=== PATIENT | male | born 1960 | race Caucasian/White ===

== ENCOUNTER 2019-12-10 18:23 | Inpatient (IN) | payer MEDICAID ==
[~2019-12-10] VITALS: Ht 167.6 cm; Wt 79.8 kg
--- NOTE | 2019-12-10 18:38 | NUR ---
REGINALDO FROM [facility] W C/O SOB AND FEVER. TO ER BED 8, PROVIDED MASK TO PATIENT, HOOKED TO BRANCH ACCOUNT MANAGER AND POX, PATIENT NOTED TACHYCARDIC AT 152BPM, AFEBRILE AT 98.4F. CHANGED TO HOSP GOWN, NOTED WITH R CHEST PORT-A-CATH, RADHA AV FISTULA WITH BRUIT AND THRILL. WARM BLANKET PROVIDED, PATIENT LAST DIALYSIS LAST SUNDAY. DR CASTELLON AT BEDSIDE FOR EVAL.
--- NOTE | 2019-12-10 18:53 | NUR ---
GOVERNMENT SERVICE EXECUTIVE AT BEDSIDE FOR XRAY.
[2019-12-10 19:00] LABS: BASOPHILS % (AUTO) 0.5 % (0.0-2.0); EOSINOPHILS % (AUTO) 0.8 % (0.0-6.0); HEMATOCRIT 29 % (39-51); HEMOGLOBIN 9.7 g/dL (13.5-17.5); LYMPHOCYTES # (AUTO) 0.7 /CMM (0.8-4.8); LYMPHOCYTES % (AUTO) 8.3 % (20.0-44.0); MEAN CORPUSCULAR HGB CONC 33 g/dl (31.0-36.0); MEAN CORPUSCULAR VOLUME 98 fL (80-96); MONOCYTES # (AUTO) 0.7 /CMM (0.1-1.30); MONOCYTES % (AUTO) 7.6 % (2.0-12.0); NEUTROPHILS # (AUTO) 7.1 /CMM (1.8-8.9); NEUTROPHILS % (AUTO) 82.8 % (43.0-81.0); PLATELET COUNT (AUTO) 198 /CMM (150-450); RED BLOOD CELL COUNT(AUTO) 2.99 MIL/uL (4.5-6.0); WHITE BLOOD COUNT (AUTO) 8.6 K/uL (4.3-11.0)
[2019-12-10] MEDS ORDERED: CHOL100040 PO (19:05)
[2019-12-10] MEDS ORDERED: POLY17PO4 PO (19:05)
[2019-12-10] MEDS ORDERED: CARV3.122 PO (19:05)
[2019-12-10] MEDS ORDERED: FOLI0.8T23 PO (19:05)
[2019-12-10] MEDS ORDERED: ASPI-1152 PO (19:05)
[2019-12-10] MEDS ORDERED: ATOR40TA PO (19:05)
[2019-12-10] MEDS ORDERED: BUME2TAB7 PO (19:05)
[2019-12-10] MEDS ORDERED: GABA-534 PO (19:05)
[2019-12-10] MEDS ORDERED: SENN-261 PO (19:05)
[2019-12-10] MEDS ORDERED: NIFE-57 PO (19:05)
[2019-12-10] MEDS ORDERED: SEVE800T8 PO (19:05)
[2019-12-10] MEDS ORDERED: BISA-79 PO (19:05)
--- NOTE | 2019-12-10 19:26 | NUR ---
REC'D REPORT FROM PEPE BUCK FOR ALANNAH
--- NOTE | 2019-12-10 19:26 | NUR ---
REPORT GIVEN TO RJ LEIVA RN FOR ALANNAH
[2019-12-10 19:30] LABS: ALBUMIN 3.3 g/dL (3.4-5.0); BILIRUBIN,TOTAL 0.4 mg/dL (0.2-1.0); CALCIUM, SERUM 7.6 mg/dL (8.5-10.1); TOTAL PROTEIN, SERUM 7.6 g/dL (6.4-8.2)
[2019-12-10 19:32] LABS: CREATININE 10.9 mg/dL (0.6-1.3)
--- NOTE | 2019-12-10 20:02 | NUR ---
RT AT BEDSIDE FOR ABG
[2019-12-10 20:04] LABS: C-REACTIVE PROTEIN 9.1 mg/dL (0.0-0.9)
[2019-12-10 20:12] LABS: ABG BASE EXCESS -8.8 mmol/L; ABG OXYGEN SATURATION 85.7 % (92.0-98.5); ABG PCO2 33.9 mmHg (35.0-45.0); ABG PH 7.307 (7.350-7.450); ABG PO2 55.4 mmHg (75.0-100.0); AaDO2 53.7 mmHg; COHb 0.3 % (0.5-1.5); MetHb 0.3 % (0.0-1.5); O2Hb 85.2 % (94.0-97.0); SITE, ABG Right Radial; VENT MODE, BG RA
[2019-12-10 20:33] LABS: D-DIMER 0.32 mg/L(FEU (0.17-0.50)
[2019-12-10] MEDS ORDERED: DILTIAZEM HCL 50 MG IV IV PRN (22:00)
[2019-12-10] MEDS ORDERED: BISACODYL (5 MG) 5 MG TABLET.DR PO PRN (22:00)
--- NOTE | 2019-12-10 22:01 | NUR ---
Patient is resting comfortably in bed with eyes closed. Easily aroused. VSS
[2019-12-10] MEDS ORDERED: ONDANSETRON HCL/PF 4 MG/2 ML VIAL IVP PRN (22:30)
[2019-12-10] MEDS ORDERED: MORPHINE SULFATE INJ 2 MG/ML DISP.SYRIN IV PRN (22:30)
[2019-12-10] MEDS ORDERED: HYDROCODONE/APAP 5/325MG 1 EACH TABLET PO PRN (22:30)
[2019-12-10] MEDS ORDERED: MAGNESIUM HYDROXIDE 30 ML UDC PO PRN (22:30)
[2019-12-10] MEDS ORDERED: ACETAMINOPHEN 325 MG TABLET PO PRN (22:30)
[2019-12-10] MEDS ORDERED: Z GUARD REMEDY 2 OZ OINT TP PRN (22:30)
[2019-12-10] MEDS ORDERED: MAG HYDROX/AL HYDROX/SIMETH 30 ML UDC PO PRN (22:30)
--- NOTE | 2019-12-11 00:27 | NUR ---
REPORT GIVEN TO PEPE GOOD FOR ALANNAH
--- NOTE | 2019-12-11 00:28 | NUR ---
RECEIVED REPORT FROM ER NURSE DE LA ROSA FOR ALANNAH.
--- NOTE | 2019-12-11 00:46 | NUR ---
PT TRANSFERRED PER ACLS PROTOCOL
--- NOTE | 2019-12-11 00:47 | NUR ---
RN ADMITTING NOTE RECEIVED PATIENT FROM ER VIA [facility]; ADMITTING DIAGNOSIS OF SHORTNESS OF BREATH AND FEVER. PATIENT AWAKE, ALERT AND ORIENTED X4. GRENADIAN SPEAKING BUT ABLE TO UNDERSTAND SOME GAMBIAN. DENIES PAIN. IN NO S/SX OF ACUTE DISTRESS AT THIS TIME. NO SOB NOTED. PATIENT'S BREATHING IS EVEN AND UNLABORED. PATIENT IS ON 2 L OF OXYGEN VIA NC; TOLERATING WELL.SATURATING 100% AT THE MOMENT. PATIENT ON TELE MONITOR READING SR AT 70'S. NOTED IV SITE ON RAC; GAUGE18,PATENT AND FLUSHING WELL, SALINE LOCKED. NO S/S OF INFECTION OR INFILTRATION. NOTED AV FISTULA ON THE RADHA. SITE CLEAN , DRY, INTACT. BRUIT AND THRILL NOTED. PATIENT KEPT CLEAN , DRY AND COMFORTABLE.SAFETY MEASURES IMPLEMENTED PER PROTOCOL. PATIENT BED ALARM IS ON. HEAD OF BED ELEVATED. BED IS LOCKED, IN LOWEST POSITION AND SIDE RAILS UPX2. CALL LIGHT WITHIN REACH OF THE PATIENT. ISOLATION PRECAUTIONS IN PLACE. WILL CONTINUE TO MONITOR AND REASSESS FOR ANY CHANGE IN CONDITION. WILL ATTEND TO ALL MD ADMITTING ORDERS.
[2019-12-11 01:19] VITALS: BP 132/69
[2019-12-11] MEDS: SENNOSIDES 8.6 MG TABLET PO SCH ×2 (01:42→21:03)
[2019-12-11] MEDS: GABAPENTIN 300 MG CAPSULE PO SCH ×2 (01:42→21:03)
[2019-12-11] MEDS: ASPIRIN EC 81 MG TABLET.DR PO SCH ×2 (01:42→08:08)
[2019-12-11] MEDS: CARVEDILOL 6.25 MG TABLET PO SCH ×3 (01:43→16:15)
[2019-12-11] MEDS: FUROSEMIDE 40 MG/4 ML VIAL IV SCH ×3 (01:43→21:03)
[2019-12-11] MEDS ORDERED: HEPARIN INFUSION/D5W 500 ML IV ONE (01:56)
[2019-12-11] MEDS ORDERED: HEPARIN SODIUM, PORCINE 5000 UNITS/1 ML VIAL IVP SCH (02:00)
[2019-12-11] MEDS: HEPARIN INFUSION/D5W 500 ML IV PRN (03:08)
[2019-12-11 04:00] VITALS: BP 141/77
--- NOTE | 2019-12-11 06:20 | NUR ---
RN NOTES PATIENT RESTED WELL THROUGH OUT THE NIGHT. CONTINUES ON HEPARIN DRIP NO S/S OF BLEEDING NO BRUISING NOTED. NO S/S OF ACUTE DISTRESS NOTED. TELE MONITOR READING SR IN 70TO 80'S. RAC IV INTACT, RADHA AV FISTULA INTACT BRUT AND THRILL NOTED. NO S/S OF FEVER NOTED. ALL NEEDS ARE ATTENDED. SAFETY MEASURES IN PLACE, CALL LIGHT WITHIN REACH. WILL ENDORSE TO AM NURSE FOR ALANNAH.
--- NOTE | 2019-12-11 07:20 | NUR ---
RN OPENING NOTE Received patient asleep in bed appears calm and relaxed no signs of distress. Patient is on RA tolerating well O2sat 99%. Patient is ghanaian speaking knows a little bit of slovak. Tele reading SR. Has a urinal at bedside. Skin is intact patient able to ambulate. Patient has 18# RAC running Heparin and AV fistula in RADHA. Safety measures reinforced. Bed locked and on lowest position. Call light within reach. Will cont to monitor.
[2019-12-11 07:26] LABS: BASOPHILS # (AUTO) 0.1 /CMM (0.0-0.2); BASOPHILS % (AUTO) 0.7 % (0.0-2.0); HEMATOCRIT 28 % (39-51); HEMOGLOBIN 9.2 g/dL (13.5-17.5); LYMPHOCYTES # (AUTO) 0.6 /CMM (0.8-4.8); MEAN CORPUSCULAR HGB CONC 33 g/dl (31.0-36.0); MEAN CORPUSCULAR VOLUME 97 fL (80-96); MONOCYTES # (AUTO) 0.5 /CMM (0.1-1.30); MONOCYTES % (AUTO) 7.7 % (2.0-12.0); NEUTROPHILS # (AUTO) 5.9 /CMM (1.8-8.9); NEUTROPHILS % (AUTO) 81.6 % (43.0-81.0); PLATELET COUNT (AUTO) 179 /CMM (150-450); RED BLOOD CELL COUNT(AUTO) 2.85 MIL/uL (4.5-6.0); WHITE BLOOD COUNT (AUTO) 7.2 K/uL (4.3-11.0)
[2019-12-11 07:40] LABS: CALCIUM, SERUM 7.5 mg/dL (8.5-10.1); PHOSPHORUS 6.6 mg/dL (2.5-4.9); POTASSIUM 4.5 mmol/L (3.5-5.1)
[2019-12-11 07:46] LABS: CREATININE 11.2 mg/dL (0.6-1.3)
[2019-12-11 07:48] LABS: MAGNESIUM 4.3 mg/dL (1.8-2.4)
--- NOTE | 2019-12-11 07:50 | NUR ---
RN NOTE CRITICAL LAB VALUE CALLED BY DELON MAGNESIUM IS 4.3. INFORMED TG TRACER BULLET CHARGING MACHINE OPERATOR WITH NO NEW ORDERS. PATIENT IS HAVING DIALYSIS AT THE MOMENT.
[2019-12-11 08:00] VITALS: BP_SYST 136; BP_SYST 137; BP_DIAS 67; BP_DIAS 69
[2019-12-11] MEDS: SEVELAMER CARBONATE 800 MG TABLET PO SCH ×3 (08:07→18:06)
[2019-12-11] MEDS: ATORVASTATIN 40 MG TABLET PO SCH (08:16)
[2019-12-11] MEDS: NIFEdipine XL (30MG) 30 MG TAB PO SCH (08:16)
[2019-12-11] MEDS: POLYETHYLENE GLYCOL 3350 17 GM POWD.PACK PO SCH (08:17)
[2019-12-11] MEDS ORDERED: ASPIRIN EC 81 MG TABLET.DR PO SCH (09:00)
--- NOTE | 2019-12-11 10:30 | NUR ---
RN NOTE Heparin drip held per protocol PTT 99.8 will hold for 1 hr will resume at 1130 and decrease to 950units. PTT will be ordered on 1730.
[2019-12-11] MEDS ORDERED: DILTIAZEM HCL 25 MG IV IV PRN (10:34)
[2019-12-11 11:47] LABS: THYROID STIMULATING HORMONE 0.613 uIU/mL (0.358-3.74)
[2019-12-11 12:00] VITALS: BP 137/67
--- NOTE | 2019-12-11 12:00 | NUR ---
RN NOTE Restarted Heparin at 950units/hr and ordered PTT level on 12/11/2019 at 1800.
[2019-12-11 16:00] VITALS: BP 123/62
--- NOTE | 2019-12-11 18:41 | NUR ---
PLY CUTTER CLOSING NOTE Patient in bed awake watching TV. Calm and relaxed no signs of distress. NC 2L tolerating well no signs of distress. Patient is ukrainian speaking has hard of hearing but knows a little bit of german. No co pain or discomfort. All due meds given. Heparin drip running at 950 units/hr on RAC. No signs of bleeding. PTT level pending drawn at 1800. No co chest pain. Cont to monitor patient. Safety measures reinforced. Call light within reach. Bed locked and on lowest position. Vital signs within normal limits. Will endorse to night shift supervisor nurse for francis.
--- NOTE | 2019-12-11 19:00 | NUR ---
television technician notes Received pts in bed awake and responsive , on tele sr on the monitor sating 98% ,on 2 liters of 02 via nc , pts on heparin drip received at 950 units on progress , awaiting for ptt result , all needs attended too call light within reach .all due meds given as ordered , v/s stable afebrile .no sob no distress noted , will continue to monitor pts.
--- NOTE | 2019-12-11 19:30 | NUR ---
telephoto installer notes Received ptt result of 40.8 ,heparin drip increase to 200 units (total of 1150 units) next ptt will be on 130am 12/12/19. will continue to monitor pts.pts on left upper arm av shunt noted with bruit and thrill , pts had hd treatment today per endorsement from rn day shift 3 liters out , pts is negative to covid 19. Addendum: 12/11/19 at 2155 by ANNETTE AKERS RN heparin gtt increased to 150 not 200 total of 1100 units. ptt @130am 12/12/19
[2019-12-11 20:00] VITALS: BP 124/63
--- NOTE | 2019-12-11 22:33 | NUR ---
ornamental metalwork designer notes pts transfer to room 320 ([facility]) covid 19 negative , report given to Jay Rn for continuity of care.pts on heparin ggt at 1100/22ml on progress , pts endorse PTT @130 am 12/12/19. transfer in stable condition ,on nc at 2liters of 02.no sob no distress noted.
--- NOTE | 2019-12-11 23:05 | NUR ---
TRANSPORT SPECIALIST NOTES RECEIVED PT FROM ANNETTE CANTU. PT AWAKE, A/O X 4. NOT IN ANY DISTRESS. NO SOB NOTED. DENIES ANY PAIN OR DISCOMFORT AT THIS TIME. ON TELE SR @ 65 WITH HEPARIN DRIP INFUSING WELL @ 1100 UNITS/HR. CALL LIGHT WITHIN REACH. BED IN LOWEST POSITION. SR UP X 2 FOR SAFETY. WILL CONTINUE TO MONITOR.
[2019-12-12] VITALS (7 sets, daily range): BP systolic 111–118; BP diastolic 52–61
[2019-12-12 00:06] LABS: OCCULT BLOOD STOOL NEGATIVE (NEGATIVE)
[2019-12-12 06:24] LABS: BASOPHILS % (AUTO) 0.8 % (0.0-2.0); EOSINOPHILS % (AUTO) 5.9 % (0.0-6.0); HEMATOCRIT 27 % (39-51); HEMOGLOBIN 9.1 g/dL (13.5-17.5); LYMPHOCYTES # (AUTO) 0.9 /CMM (0.8-4.8); LYMPHOCYTES % (AUTO) 18.4 % (20.0-44.0); MEAN CORPUSCULAR HGB CONC 34 g/dl (31.0-36.0); MEAN CORPUSCULAR VOLUME 96 fL (80-96); MONOCYTES # (AUTO) 0.4 /CMM (0.1-1.30); MONOCYTES % (AUTO) 8.8 % (2.0-12.0); NEUTROPHILS # (AUTO) 3.2 /CMM (1.8-8.9); NEUTROPHILS % (AUTO) 66.1 % (43.0-81.0); PLATELET COUNT (AUTO) 170 /CMM (150-450); WHITE BLOOD COUNT (AUTO) 4.8 K/uL (4.3-11.0)
[2019-12-12] MEDS: HEPARIN INFUSION/D5W 500 ML IV PRN (06:31)
[2019-12-12 06:57] LABS: ALBUMIN 2.7 g/dL (3.4-5.0); BILIRUBIN,TOTAL 0.5 mg/dL (0.2-1.0); CALCIUM, SERUM 7.5 mg/dL (8.5-10.1); MAGNESIUM 3.7 mg/dL (1.8-2.4); PHOSPHORUS 7.4 mg/dL (2.5-4.9); POTASSIUM 3.7 mmol/L (3.5-5.1); TOTAL PROTEIN, SERUM 7.1 g/dL (6.4-8.2)
--- NOTE | 2019-12-12 06:59 | NUR ---
NATURAL GAS TREATING UNIT OPERATOR NOTES AWAKE & RESPONSIVE. NOT IN ANY DISTRESS. NO SOB NOTED. DENIES ANY PAIN OR DISCOMFORT AT THIS TIME. ON TELE SB @ 58 WITH HEPARIN DRIP INFUSING WELL @ 1250 UNITS/HR. CALL LIGHT WITHIN REACH. BED IN LOWEST POSITION. SR UP X 2 FOR SAFETY. WILL ENDORSE TO NEXT SHIFT.
--- NOTE | 2019-12-12 07:00 | NUR ---
GREENHOUSE GROWER OPENING NOTES RECEIVED PT IN BED AWAKE AT THIS TIME. AOX4, UZBEK SPEAKING. PT ABLE TO VERBALIZE NEEDS. PT ON EXTERNAL INFORMATION SECURITY CONSULTANT READING SB 57. PT IS ON OXYGEN 2LPM VIA NC. PT ON HEPARIN DRIP RUNNING 1250 UNITS ON PROGRESS. RADHA AV FISTULA NOTED IN PLACE AND INTACT. IV ACCESS TO RAC G#18, INTACT AND PATENT. SAFETY PRECAUTIONS IN PLACE. BED IN LOWEST LOCKED POSITION, BED ALARM ON, HOB ELEVATED TO FOWLERS POSITION, CALL LIGHT WITHIN REACH. WILL CONTINUE PLAN OF CARE AND CONTINUE TO MONITOR
[2019-12-12 07:02] LABS: CREATININE 9.3 mg/dL (0.6-1.3)
[2019-12-12] MEDS: SEVELAMER CARBONATE 800 MG TABLET PO SCH ×3 (07:58→18:09)
--- NOTE | 2019-12-12 08:45 | NUR ---
MECHANICAL ESTIMATOR NOTES PTT IS 64.4. NO CHANGE ON HEPARIN DRIP INFUSION. WILL CONTINUE TO MONITOR
[2019-12-12] MEDS: ATORVASTATIN 40 MG TABLET PO SCH (09:33)
[2019-12-12] MEDS: NIFEdipine XL (30MG) 30 MG TAB PO SCH (09:33)
[2019-12-12] MEDS: ASPIRIN EC 81 MG TABLET.DR PO SCH (09:34)
[2019-12-12] MEDS: CARVEDILOL 6.25 MG TABLET PO SCH ×2 (09:34→17:00)
[2019-12-12] MEDS: FUROSEMIDE 40 MG/4 ML VIAL IV SCH ×2 (09:34→21:56)
[2019-12-12] MEDS: POLYETHYLENE GLYCOL 3350 17 GM POWD.PACK PO SCH (09:34)
--- NOTE | 2019-12-12 15:50 | NUR ---
AIRBRUSH PAINTER NOTES PTT IS 54.0. NO CHANGE ON HEPARIN DRIP INFUSION DOSING. WILL SCHEDULE ANOTHER PTT REDRAW AT 21:50PM AND CONTINUE TO MONITOR
--- NOTE | 2019-12-12 17:22 | NUR ---
CARVEDILOL 6.25MG PO BID HELD AT THIS TIME DUE TO PATIENT DIALYSIS DONE NOW AND DECREASED BLOOD PRESSURE. BP 113/59, HR 57, RR 18, TEMP 97.8, SPO2 100%. WILL CONTINUE TO MONITOR
--- NOTE | 2019-12-12 19:02 | NUR ---
ELEVATOR OPERATOR FREIGHT CLOSING NOTES PT IN BED AWAKE AT THIS TIME. PT REMAINED STABLE THROUGHOUT SHIFT. ALL CARE, NEEDS, TREATMENT AND MEDICATIONS ADMINISTERED ANTICIPATED PER ORDER. PT KEPT CLEAN AND DRY. PT IS ONGOING DIALYSIS AT THIS TIME. PT ON HEPARIN DRIP. BED IN LOWEST LOCKED POSITION, BED ALARM ON, HOB ELEVATED, SIDE RAILS UP, CALL LIGHT WITHIN REACH. WILL ENDORSE TO CONSULTING SERVICES MANAGER NURSE FOR ALANNAH.
--- NOTE | 2019-12-12 19:25 | NUR ---
RN OPENING NOTE: PATIENT IN BED, AWAKE, AND VERBALLY RESPONSIVE. NO SOB. NO C/O PAIN. ON ADULT HEALTH CLINICAL NURSE SPECIALIST HR 70s. DIALYSIS NURSE AT BEDSIDE. PER DIALYSIS NURSE, 1,000 ML WAS REMOVED. PATIENT TOLERATED PROCEDURE WELL. LEFT ARM AV SHUNT (+) BRUIT AND THRILL. (R) AC CLEAN AND INTACT, FLUSHING WELL. ON HEPARIN DRIP, RUNNING 1250 UNITS AT THIS TIME. NEXT PTT AT 2150. NO BLEEDING NOTED. SAFETY PRECAUTIONS IMPLEMENTED. BOTH UPPER BILATERAL SIDE RAILS UP, HOB ELEVATED, BED LOCKED AND IN LOW POSITION. CALL LIGHT WITHIN REACH. WILL CONT. TO MONITOR. AT 2114, REPORT GIVEN TO ELIZABETH CANTU FOR CONTINUITY OF CARE.
--- NOTE | 2019-12-12 21:49 | NUR ---
ROCK ROOM WORKER OPENING NOTES RECEIVED REPORT FROM PEPE MESA, FOR CONTINUATION OF CARE. PATIENT SLEEPING IN BED. A/OX4. ON 2L NC. NO S/S OF ACUTE RESPIRATORY DISTRESS; BREATHING IS EVEN AND UNLABORED. NO C/O PAIN AT THIS TIME. TELE MONITOR READING NSR, HEART RATE 63. IV ON RIGHT AC, SIZE 18, INTACT & PATENT WITH HEPARIN DRIP RUNNING 1250 UNITS/HR. NO S/S OF BLEEDING NOTED. SAFETY MEASURES IN PLACE AND PATIENT'S NEEDS MET. BED LOCKED, SIDE RAILS X2, CALL LIGHT WITHIN REACH. WILL CONTINUE TO MONITOR.
[2019-12-12] MEDS: GABAPENTIN 300 MG CAPSULE PO SCH (21:56)
[2019-12-12] MEDS: SENNOSIDES 8.6 MG TABLET PO SCH (21:56)
[2019-12-13] VITALS (7 sets, daily range): BP systolic 106–132; BP diastolic 52–65
[2019-12-13] MEDS: HEPARIN INFUSION/D5W 500 ML IV PRN (05:48)
--- NOTE | 2019-12-13 07:00 | NUR ---
CHIEF PROJECTIONIST OPENING NOTES RECEIVED PT IN BED AWAKE AT THIS TIME. AOX4, GERMAN SPEAKING. PT IS ABLE TO MAKE NEEDS KNOW. NO SOB NOTED, NO S/S OF ANY ACUTE DISTRESS ATH THIS TIME. PT ON EXTERNAL VICE PRESIDENT FOR INSTRUCTION READING SR IN THE 60S. PT IS ON OXYGEN 2LPM VIA NC. PT ON HEPARIN DRIP RUNNING 1250 UNITS ON PROGRESS. RADHA AV FISTULA NOTED IN PLACE AND INTACT. IV ACCESS TO RAC G#18, INTACT AND PATENT. SAFETY PRECAUTIONS IN PLACE. BED IN LOWEST LOCKED POSITION, BED ALARM ON, SIDE RAILS UP, HOB ELEVATED TO FOWLERS POSITION, CALL LIGHT WITHIN REACH. WILL CONTINUE PLAN OF CARE AND CONTINUE TO MONITOR
--- NOTE | 2019-12-13 07:28 | NUR ---
ROADS AND PARKING LOTS SWEEPER OPERATOR CLOSING NOTES PATIENT SLEEPING IN BED. A/OX4. ON RA. NO S/S OF ACUTE RESPIRATORY DISTRESS; BREATHING IS EVEN AND UNLABORED. NO C/O PAIN AT THIS TIME. TELE MONITOR READING NSR, HEART RATE 61. IV ON RIGHT AC, SIZE 18, INTACT & PATENT WITH HEPARIN DRIP RUNNING 1250 UNITS/HR. NO S/S OF BLEEDING NOTED. SAFETY MEASURES IN PLACE AND PATIENT'S NEEDS MET. BED LOCKED, SIDE RAILS X2, CALL LIGHT WITHIN REACH. WILL ENDORSE TO DAY SHIFT NURSE PLAN OF CARE.
[2019-12-13] MEDS: SEVELAMER CARBONATE 800 MG TABLET PO SCH ×3 (08:41→18:11)
[2019-12-13 08:56] LABS: BASOPHILS % (AUTO) 0.6 % (0.0-2.0); EOSINOPHILS % (AUTO) 5.9 % (0.0-6.0); HEMATOCRIT 29 % (39-51); HEMOGLOBIN 9.6 g/dL (13.5-17.5); LYMPHOCYTES # (AUTO) 0.6 /CMM (0.8-4.8); LYMPHOCYTES % (AUTO) 11.5 % (20.0-44.0); MEAN CORPUSCULAR HGB CONC 34 g/dl (31.0-36.0); MEAN CORPUSCULAR VOLUME 96 fL (80-96); MONOCYTES # (AUTO) 0.4 /CMM (0.1-1.30); MONOCYTES % (AUTO) 7.1 % (2.0-12.0); NEUTROPHILS # (AUTO) 4.1 /CMM (1.8-8.9); NEUTROPHILS % (AUTO) 74.9 % (43.0-81.0); PLATELET COUNT (AUTO) 199 /CMM (150-450); RED BLOOD CELL COUNT(AUTO) 2.99 MIL/uL (4.5-6.0); WHITE BLOOD COUNT (AUTO) 5.4 K/uL (4.3-11.0)
[2019-12-13] MEDS: ASPIRIN EC 81 MG TABLET.DR PO SCH (09:27)
[2019-12-13] MEDS: ATORVASTATIN 40 MG TABLET PO SCH (09:27)
[2019-12-13] MEDS: POLYETHYLENE GLYCOL 3350 17 GM POWD.PACK PO SCH (09:28)
[2019-12-13] MEDS: CARVEDILOL 6.25 MG TABLET PO SCH ×2 (09:28→17:08)
[2019-12-13] MEDS: NIFEdipine XL (30MG) 30 MG TAB PO SCH (09:29)
[2019-12-13] MEDS: FUROSEMIDE 40 MG/4 ML VIAL IV SCH ×2 (09:29→20:45)
[2019-12-13 09:46] LABS: CALCIUM, SERUM 7.6 mg/dL (8.5-10.1); CREATININE 6.5 mg/dL (0.6-1.3); MAGNESIUM 2.9 mg/dL (1.8-2.4); PHOSPHORUS 6.1 mg/dL (2.5-4.9); POTASSIUM 4.4 mmol/L (3.5-5.1)
--- NOTE | 2019-12-13 09:55 | NUR ---
HEPARIN DRIP INFUSION DC AT THIS TIME. ORDERS CARRIED OUT. WILL CONTINUE TO MONITOR
[2019-12-13] MEDS: HEPARIN SODIUM, PORCINE 5000 UNITS/1 ML VIAL SQ SCH ×2 (11:56→21:39)
--- NOTE | 2019-12-13 12:20 | NUR ---
PT SCHEDULED FOR CT ANGIOGRAM HEART WITH 3D IMAGE. IV ACCESS TO RAC G#[address], INTACT AND PATENT, CONSENT SIGNED AND FILED IN CHART. WILL CONTINUE TO MONITOR
--- NOTE | 2019-12-13 18:48 | NUR ---
CRAFT DEMONSTRATOR CLOSING NOTES PT IN BED AWAKE AT THIS TIME. PT REMAINED STABLE THROUGHOUT SHIFT. PT IS ON OXYGEN 2LPM VIA NC AND SATURATING WELL. PT KEPT CLEAN AND DRY. ALL CARE, NEEDS, TREATMENT AND MEDICATIONS ADMINISTERED ANTICIPATED PER ORDER. SAFETY PRECAUTIONS IN PLACE. BED IN LOWEST LOCKED POSITION, BED ALARM ON, SIDE RAILS UP, HOB ELEVATED TO FOWLERS POSITION, CALL LIGHT WITHIN REACH. WILL ENDORSE TO PET CARE ATTENDANT NURSE FOR ALANNAH
--- NOTE | 2019-12-13 19:08 | NUR ---
MS RN: RECEIVED PATIENT Patient in bed, awake. No c/o chest pain, denies N/V. Had dialysis treatment yesterday per [facility],RN report. Patient is ambulatory, instructed to use call light if he needs assistance, verbalized understanding. Fall precaution maintained.
[2019-12-13] MEDS: GABAPENTIN 300 MG CAPSULE PO SCH (21:08)
[2019-12-13] MEDS: SENNOSIDES 8.6 MG TABLET PO SCH (21:08)
--- NOTE | 2019-12-13 21:43 | NUR ---
HEPARIN INJECTION: Plan for CT angio heart w/ 3D image tomorrow. Notified Dr. Uriarte, can give Heparin injection tonight dose 12/13/19, verified with PEPE Lyn.
--- NOTE | 2019-12-14 06:32 | NUR ---
MS RN: END OF SHIFT REPORT Patient in bed, adequate oxygenation on room air. Ambulates to the bathroom, standby assist. Stool not available, no BM this shift. Denies chest pain. Plan for CT angio heart with 3D image, consent form signed by patient in the chart. Will endorse to oncoming RN.
[2019-12-14 07:05] LABS: BASOPHILS % (AUTO) 0.7 % (0.0-2.0); EOSINOPHILS % (AUTO) 7.2 % (0.0-6.0); HEMATOCRIT 28 % (39-51); HEMOGLOBIN 9.7 g/dL (13.5-17.5); LYMPHOCYTES # (AUTO) 0.7 /CMM (0.8-4.8); LYMPHOCYTES % (AUTO) 13.3 % (20.0-44.0); MEAN CORPUSCULAR HGB CONC 34 g/dl (31.0-36.0); MEAN CORPUSCULAR VOLUME 95 fL (80-96); MONOCYTES # (AUTO) 0.4 /CMM (0.1-1.30); MONOCYTES % (AUTO) 8.4 % (2.0-12.0); NEUTROPHILS # (AUTO) 3.7 /CMM (1.8-8.9); NEUTROPHILS % (AUTO) 70.4 % (43.0-81.0); PLATELET COUNT (AUTO) 210 /CMM (150-450); RED BLOOD CELL COUNT(AUTO) 2.98 MIL/uL (4.5-6.0); WHITE BLOOD COUNT (AUTO) 5.3 K/uL (4.3-11.0)
[2019-12-14 07:22] LABS: CALCIUM, SERUM 7.8 mg/dL (8.5-10.1); MAGNESIUM 3.3 mg/dL (1.8-2.4); PHOSPHORUS 7.3 mg/dL (2.5-4.9); POTASSIUM 4.5 mmol/L (3.5-5.1)
[2019-12-14 07:24] LABS: CREATININE 7.8 mg/dL (0.6-1.3)
--- NOTE | 2019-12-14 07:42 | NUR ---
MS RN OPENING NOTE PATIENT IN BED RESTING COMFORTABLY. PATIENT IN NO ACUTE DISTRESS. NO SOB NOTED. PATIENT BREATHING IS EVEN AND UNLABORED. SAFETY PRECAUTIONS IN PLACE. PATIENT BED ALARM IS ON. PATIENT BED IS LOCKED AND IN LOWEST POSITION. CALL LIGHT WITHIN REACH. WILL CONTINUE TO MONITOR.
--- NOTE | 2019-12-14 07:55 | NUR ---
MS RN NOTE NOTIFIED AND MADE AWARE TO KATHRYN MONTESINOS CREATININE 7.8. NO NEW ORDERS AT THIS TIME. WILL CONTINUE TO MONITOR.
[2019-12-14 08:00] VITALS: BP 139/74
[2019-12-14] MEDS: POLYETHYLENE GLYCOL 3350 17 GM POWD.PACK PO SCH (08:28)
[2019-12-14] MEDS: SEVELAMER CARBONATE 800 MG TABLET PO SCH ×3 (08:28→17:52)
[2019-12-14] MEDS: ATORVASTATIN 40 MG TABLET PO SCH (08:29)
[2019-12-14] MEDS: CARVEDILOL 6.25 MG TABLET PO SCH ×2 (08:29→17:00)
[2019-12-14] MEDS: ASPIRIN EC 81 MG TABLET.DR PO SCH (08:29)
[2019-12-14] MEDS: FUROSEMIDE 40 MG/4 ML VIAL IV SCH ×2 (08:30→20:32)
[2019-12-14] MEDS: NIFEdipine XL (30MG) 30 MG TAB PO SCH (08:30)
[2019-12-14] MEDS: HEPARIN SODIUM, PORCINE 5000 UNITS/1 ML VIAL SQ SCH ×2 (08:32→20:32)
[2019-12-14] MEDS ORDERED: METOPROLOL TARTRATE INJ 5 MG/5 ML AMPUL IVP PRN (09:30)
[2019-12-14] MEDS ORDERED: NITROGLYCERIN 0.4 MG/TAB BOTTLE SL PRN (09:30)
[2019-12-14] MEDS ORDERED: IV NS 0.9% 500 ML IV PRN (09:30)
[2019-12-14] MEDS ORDERED: CT SWABBABLE VALVE TRANS SET 1 EA INFUS.SET MC ONE (11:24)
[2019-12-14] MEDS ORDERED: IOHEXOL-350 100 ML VIAL IV ONE (11:24)
[2019-12-14] MEDS ORDERED: IV NS 0.9% 250 ML IV ONE (11:25)
--- NOTE | 2019-12-14 12:48 | NUR ---
MS RN NOTE PER CHARGE NURSE BEN, SHE SPOKE WITH DR. GTZ ABOUT CTA RESULTS. PER MD WILL HANDLE AND EVALUATE. NO NEW ORDERS AT THIS TIME.
[2019-12-14 16:00] VITALS: BP 139/64
--- NOTE | 2019-12-14 17:23 | NUR ---
MS RN NOTE HELD COREG 1700 DOSE DUE TO PATIENT CURRENTLY UNDERGOING DIALYSIS.
--- NOTE | 2019-12-14 17:55 | NUR ---
MS RN NOTE PATIENT TOLERATED DIALYSIS WELL. PER [employer] GLYCERINE PLANT OPERATOR 2L OUT FROM DIALYSIS.
--- NOTE | 2019-12-14 18:44 | NUR ---
MS RN CLOSING NOTE PATIENT IN BED RESTING COMFORTABLY. PATIENT IN NO ACUTE DISTRESS. NO SOB NOTED. PATIENT BREATHING IS EVEN AND UNLABORED. PATIENT KEPT CLEAN, DRY, AND COMFORTABLE THROUGHOUT SHIFT. SAFETY PRECAUTIONS IN PLACE. PATIENT BED ALARM IS ON. PATIENT BED IS LOCKED AND IN LOWEST POSITION. CALL LIGHT WITHIN REACH. WILL ENDORSE CARE TO PM SHIFT FOR ALANNAH.
--- NOTE | 2019-12-14 19:20 | NUR ---
RN OPENING NOTES: Received pt awake in bed A&Ox4, Wolof speaking. On RA, O2 WNL. No SOB or respiratory distress noted. RAC #18 patent and flushing. Dressing c/d/i. RADHA AVF noted. Safety measures in place. Will continue to monitor.
[2019-12-14 20:00] VITALS: BP 140/71
[2019-12-14 20:40] VITALS: BP 140/71
[2019-12-14] MEDS: GABAPENTIN 300 MG CAPSULE PO SCH (21:08)
[2019-12-14] MEDS: SENNOSIDES 8.6 MG TABLET PO SCH (21:08)
--- NOTE | 2019-12-15 06:39 | NUR ---
RN CLOSING NOTES: Pt remains on RA. No SOB or respiratory distress noted during shift. No acute changes noted throughout shift. All meds given as ordered. All needs attended to. Safety measures in place. Will endorse to AM nurse for ALANNAH.
--- NOTE | 2019-12-15 07:10 | NUR ---
VACUUM FORMING MACHINE OPERATOR OPENING NOTES RECEIVED PT IN BED AWAKE AT THIS TIME. AOX4, YAKUT SPEAKING. NO SOB NOTED, NO S/S OF ANY ACUTE DISTRESS. PT ABLE TO TO MAKE NEEDS KNOWN. RADHA AV FISTULA NOTED IN PLACE AND INTACT. IV ACCESS TO RAC G#18, INTACT, PATENT AND FLUSHING WELL. SAFETY PRECAUTIONS IN PLACE. BED IN LOWEST LOCKED POSITION, BED ALARM ON, HOB ELEVATED TO FOWLERS POSITION, CALL LIGHT WITHIN REACH. WILL CONTINUE PLAN OF CARE AND CONTINUE TO MONITOR
[2019-12-15 07:31] LABS: EOSINOPHILS % (AUTO) 7.3 % (0.0-6.0); HEMATOCRIT 30 % (39-51); HEMOGLOBIN 10.1 g/dL (13.5-17.5); LYMPHOCYTES # (AUTO) 0.8 /CMM (0.8-4.8); LYMPHOCYTES % (AUTO) 16.6 % (20.0-44.0); MEAN CORPUSCULAR HGB CONC 34 g/dl (31.0-36.0); MEAN CORPUSCULAR VOLUME 95 fL (80-96); MONOCYTES # (AUTO) 0.5 /CMM (0.1-1.30); MONOCYTES % (AUTO) 10.7 % (2.0-12.0); NEUTROPHILS # (AUTO) 3.1 /CMM (1.8-8.9); NEUTROPHILS % (AUTO) 64.4 % (43.0-81.0); PLATELET COUNT (AUTO) 198 /CMM (150-450); RED BLOOD CELL COUNT(AUTO) 3.11 MIL/uL (4.5-6.0); WHITE BLOOD COUNT (AUTO) 4.8 K/uL (4.3-11.0)
[2019-12-15 07:45] LABS: CALCIUM, SERUM 7.5 mg/dL (8.5-10.1); MAGNESIUM 2.8 mg/dL (1.8-2.4); PHOSPHORUS 5.8 mg/dL (2.5-4.9); POTASSIUM 4.7 mmol/L (3.5-5.1)
[2019-12-15] MEDS: SEVELAMER CARBONATE 800 MG TABLET PO SCH ×2 (08:36→13:04)
[2019-12-15] MEDS: POLYETHYLENE GLYCOL 3350 17 GM POWD.PACK PO SCH (08:42)
[2019-12-15] MEDS: ATORVASTATIN 40 MG TABLET PO SCH (08:42)
[2019-12-15] MEDS: NIFEdipine XL (30MG) 30 MG TAB PO SCH (08:43)
[2019-12-15 08:44] VITALS: BP 159/72
[2019-12-15] MEDS: CARVEDILOL 6.25 MG TABLET PO SCH (08:44)
[2019-12-15] MEDS: FUROSEMIDE 40 MG/4 ML VIAL IV SCH (08:44)
[2019-12-15] MEDS: HEPARIN SODIUM, PORCINE 5000 UNITS/1 ML VIAL SQ SCH (08:45)
[2019-12-15] MEDS: ASPIRIN EC 81 MG TABLET.DR PO SCH (09:12)
--- NOTE | 2019-12-15 13:25 | NUR ---
MS RN AMA NOTES PATIENT REQUESTED TO LEAVE THE HOSPITAL AT THIS TIME. EDUCATION ON RISKS AND CONSEQUENCES INVOLVED IN LEAVING THE HOSPITAL AND BENEFITS OF CONTINUED HOSPITALIZATION, TREATMENT AND ALTERNATIVES DISCUSSED. PATIENT VERBALIZED UNDERSTANDING AND PERSISTED ON LEAVING AGAINST MEDICAL ADVICE. VEE, CHARGE NURSE AND ATTENDING HOSPITALIST JORDAN RICHTER MADE AWARE. PATIENT IN STABLE CONDITION WITH STABLE VITAL SIGNS. ALL CARE, NEEDS, TREATMENT AND MEDICATIONS ADMINISTERED ANTICIPATED PER ORDER. ALL BELONGINGS ACCOUNTED FOR, SIGNED BY PATIENT AND COPY FILED IN CHART. AGAINST MEDICAL ADVICE FORM SIGNED BY PATIENT AND FILED IN CHART. IV ACCESS IN RAC REMOVED, PRESSURE APPLIED WITH GAUZE AND AFFIX WITH TAPE. NO SIGN OF BLEEDING OR INFILTRATION NOTED AT IV SITE. PATIENT ACCOMPANIED TO LOBBY BY LANG HIRSCH.
== END 2019-12-15 13:55 | disposition home or self-care (01) | DRG 720 ==
LOC: ER 18:26 → TELE1 12-11 00:17 → TELE-TD 12-11 00:59 → TELE 12-11 23:02 → MED 12-13 10:29
PROVIDERS: ADMIT Internal Medicine; ATTEND Nurse Practitioner Acute Care
PROC: 5A1D70Z Performance of Urinary Filtration, Intermittent, Less than 6 Hours Per Day (ICD-10-PCS; principal; 2019-12-11)
DX: A41.9 Sepsis, unspecified organism (principal); I21.A1 Myocardial infarction type 2; J96.91 Respiratory failure, unspecified with hypoxia; E43 Unspecified severe protein-calorie malnutrition; I13.2 Hypertensive heart and chronic kidney disease with heart failure and with stage 5 chronic kidney disease, or end stage renal disease; E10.22 Type 1 diabetes mellitus with diabetic chronic kidney disease; I25.10 Atherosclerotic heart disease of native coronary artery without angina pectoris; N18.6 End stage renal disease; Z99.2 Dependence on renal dialysis; I50.9 Heart failure, unspecified; E10.65 Type 1 diabetes mellitus with hyperglycemia; Z79.82 Long term (current) use of aspirin; Z79.899 Other long term (current) drug therapy; D63.1 Anemia in chronic kidney disease; E10.42 Type 1 diabetes mellitus with diabetic polyneuropathy; N25.0 Renal osteodystrophy; Z79.4 Long term (current) use of insulin; H91.90 Unspecified hearing loss, unspecified ear; Z91.19 Patient's noncompliance with other medical treatment and regimen
CPT/HCPCS: 36415; 36600; 71045-TC; 75574; 80048-TC; 80053-TC; 80061-TC; 82272-TC; 82550-TC; 82728-TC; 82803-TC; 83540-TC; 83605-TC; 83615-TC; 83735-TC; 83880; 84100-TC; 84439-TC; 84443-TC; 84484-TC; 85025-TC; 85378-TC; 85730-TC; 86140-TC; 86706; 87040-TC; 87045-TC; 87081-TC; 87340; 90935-TC; 93307-TC; G0378; J1644; J1940; J3490; J7050; Q9967; U0003-CS